=== PATIENT | male | born 1940 | race Caucasian/White ===

== ENCOUNTER → 2017-08-08 | Outpatient (CLI) | payer MEDICARE, BC ==
[~2017-08-08] MED LIST: ASPIRIN E.C. 8181 MG PO; BETAPACE 80MG80 MG PO; COUMADIN 5MG5 MG/TAB PO; HCTZ 25MG TAB25 MG PO; HYDRODIURIL PO; IRON325 M2 PO; LIPITOR 40MG TA40 MG PO; MOBIC15 MG PO; PLAVIX 75MG TAB75 MG PO; PRILOSEC 20MG20 MG PO; SINGULAIR 110 MG/TAB PO
== END ==
LOC: COL.RAD 08:52
DX: C34.92 Malignant neoplasm of unspecified part of left bronchus or lung (principal)
CPT/HCPCS: Q9967

== ENCOUNTER → 2018-12-28 | Outpatient (CLI) | payer MEDICARE, BC | LOC: COL.RAD 10:18 | DX: C34.32 Malignant neoplasm of lower lobe, left bronchus or lung (principal); Z98.890 Other specified postprocedural states | CPT/HCPCS: Q9967 ==

== ENCOUNTER 2020-07-14 09:40 | Day surgery (SDC) | payer MEDICARE, BC ==
[2020-07-14] VITALS (13 sets, daily range): BP systolic 92–131; BP diastolic 67–94; PULSE 60–130; TEMP 97.8
[~2020-07-14] VITALS: Ht 188.1 cm; Wt 97.8 kg
[2020-07-14 09:23] LABS: BASO % 0.4 % (0.0-2.0); EOS # 0.1 (0.0-0.7); EOS % 1.3 % (0-4.0); GRAN # 5.4 (1.4-6.5); GRAN % 75.5 % (42.2-75.2); HEMATOCRIT 39.9 % (42.0-52.0); HEMOGLOBIN 12.8 g/dl (13.5-18.0); LYMPH % 14.1 % (20.0-51.0); MEAN CELL VOLUME 99 fl (80.0-100.0); MEAN CORPUSCULAR HEMOGLOBIN 32 pg (27.0-31.0); MEAN CORPUSCULAR HGB CONC 32 g/dl (33.0-37.0); MEAN PLATELET VOLUME 10.9 fl (7.4-10.4); MONO # 0.6 (0.1-0.6); MONO % 8.4 % (1.7-9.3); PLATELET COUNT 146 K/mm3 (130-400); RED BLOOD COUNT 4.03 M/mm3 (4.20-5.60); REDCELL DISTRIBUTION WIDTH-CV 13.3 % (11.5-14.5)
[2020-07-14 09:33] LABS: CALCIUM 8.5 mg/dL (8.4-10.2); CREATININE, serum 1.33 (0.66-1.25); MAGNESIUM 1.3 mg/dL (1.6-2.3); POTASSIUM 4.6 mmol/L (3.4-5.0)
[~2020-07-14 09:40] MED LIST changes: +ACEBUTOLOL HYD200 MG PO; +ELIQUIS 5MG PO; -IRON325 M2 PO; +NATURAL IRON65 MG PO; +NORVASC 5MG5 MG/TAB PO
[2020-07-14 09:55] LABS: INR 1.5 (0.8-3.0); PROTHROMBIN TIME 16.7 SECONDS (9.7-12.8)
[2020-07-14 09:58] LABS: PARTIAL THROMBOPLASTIN TIME 32.6 SECONDS (26.0-37.0)
[2020-07-14 10:01] LABS: TSH w REFLEX 3.22 uIU/mL (0.465-4.680)
--- NOTE | 2020-07-14 10:30 | NUR ---
Dr. Hamilotn is at bedside to discuss poc with pt. Cardioversion was successful, pt now resting comfortably in sinus rhythm, rate 60. resp eupnic 98% on room air. repeat EKG has been obtained. Report was received from Lily KHAN.
--- NOTE | 2020-07-14 10:40 | NUR ---
Dr. Hamilton back at . Per Dr. Hamilton will plan on sending pt home after infusion of IV magnesium and po amiodarone.
[2020-07-14] MEDS ORDERED: PACERONE200 MG PO (10:51)
[2020-07-14] MEDS ORDERED: LASIX 20MG TABL20 MG PO (10:52)
[2020-07-14] MEDS ORDERED: K-DUR 10 MEQ T10 MEQ PO (10:53)
[2020-07-14] MEDS ORDERED: MAG-OX 400400 MG/TAB PO (10:53)
[2020-07-14] MEDS ORDERED: APRESOLINE50 MG PO (10:55)
--- NOTE | 2020-07-14 16:30 | NUR ---
Pt did well today, pt was converted to NSR, I assumed pt care at 1020. Pt felt much better after cardioversion. 4gram mag sulfate infusion administered as ordered, and PO amiodarone was administered after at least 1 gram of mag had infused. pt has been able to ambulate to br with no problem, he states he is feeling much less sob than he did this am with this amount of exertion. Pt did eat lunch during his stay. Pt and I reviewed his dc/fu/rx instructions as pt did have multiple mew medications from Dr. Hamilton. Pt verbalized understanding of these instructions. A written copy of instructions was provided. iv was dc'd with cath intact dressing applied. pt to exit via wheelchair.
== END 2020-07-14 17:48 | disposition home or self-care (01) ==
LOC: COL.CAR 09:40
PROVIDERS: Internal Medicine Adult Congenital Heart Disease
DX: I48.0 Paroxysmal atrial fibrillation (principal); I25.10 Atherosclerotic heart disease of native coronary artery without angina pectoris; I10 Essential (primary) hypertension; E78.5 Hyperlipidemia, unspecified; Z79.01 Long term (current) use of anticoagulants; Z87.891 Personal history of nicotine dependence; M16.0 Bilateral primary osteoarthritis of hip; Z96.653 Presence of artificial knee joint, bilateral; Z79.82 Long term (current) use of aspirin; Z88.8 Allergy status to other drugs, medicaments and biological substances; J44.9 Chronic obstructive pulmonary disease, unspecified; K21.9 Gastro-esophageal reflux disease without esophagitis; F41.9 Anxiety disorder, unspecified
CPT/HCPCS: J2704; J3475; J7120

== ENCOUNTER 2021-06-19 07:25 | Outpatient (CLI) | payer MEDICARE, BC ==
[~2021-06-19] VITALS: Ht 188.3 cm; Wt 94.5 kg
[~2021-06-19 07:25] MED LIST changes: +APRESOLINE50 MG PO; +K-DUR 10 MEQ T10 MEQ PO; +LASIX 20MG TABL20 MG PO; +MAG-OX 400400 MG/TAB PO; +PACERONE200 MG PO
[2021-06-19 07:53] LABS: HEMATOCRIT 42.7 % (42.0-52.0); HEMOGLOBIN 14.1 g/dl (13.5-18.0); MEAN CELL VOLUME 99 fl (80.0-100.0); MEAN CORPUSCULAR HEMOGLOBIN 33 pg (27-31); MEAN CORPUSCULAR HGB CONC 33 g/dl (33.0-37.0); MEAN PLATELET VOLUME 9.9 fl (7.4-10.4); PLATELET COUNT 170 K/mm3 (130-400); RED BLOOD COUNT 4.31 M/mm3 (4.20-5.60); REDCELL DISTRIBUTION WIDTH-CV 12.7 % (11.5-14.5)
[2021-06-19] MEDS ORDERED: ZESTRIL 10MG10 MG PO (07:59)
[2021-06-19] MEDS ORDERED: TYLENOL 500MG500 MG PO (08:02)
[2021-06-19] MEDS ORDERED: LASIX 20MG TABL20 MG PO (08:03)
[2021-06-19] MEDS ORDERED: K-DUR 10 MEQ T10 MEQ PO (08:04)
[2021-06-19] MEDS ORDERED: KLONOPIN 0.5MG0.5 MG PO (08:04)
[2021-06-19] MEDS ORDERED: ACEBUTOLOL HYD200 MG PO (08:05)
[2021-06-19 08:14] LABS: ALBUMIN 3.8 gm/dL (3.4-4.8); BILIRUBIN,TOTAL 0.6 mg/dL (0.2-1.2); CALCIUM 8.7 mg/dL (8.4-10.2); CHOLESTEROL RISK RATIO 2.7; CREATININE, serum 1.3 mg/dL (0.72-1.25); MAGNESIUM 1.6 mg/dL (1.6-2.6); POTASSIUM 4.5 mmol/L (3.5-4.5); TOTAL PROTEIN 6.5 gm/dL (6.2-8.1)
[2021-06-19 08:50] VITALS: BP 126/87; PULSE 102; TEMP 98.1
[2021-06-19 09:50] VITALS: BP 112/77; PULSE 48
[2021-06-19 10:00] VITALS: BP 138/75; PULSE 54
[2021-06-19] MEDS ORDERED: PACERONE200 MG PO (10:07)
[2021-06-19 10:15] VITALS: BP 135/68; PULSE 52
[2021-06-19 10:30] VITALS: BP 129/72; PULSE 54
[2021-06-19 10:45] VITALS: BP 132/76; PULSE 55
--- NOTE | 2021-06-19 10:51 | NUR ---
Discharge instructions given to pt.pt verbalizes understanding.INT removed,catheter tip intact.
--- NOTE | 2021-06-19 11:00 | NUR ---
Pt escorted out via wheelchair by this nurse.
== END 2021-06-19 11:54 ==
LOC: COL.RAD 07:25
PROVIDERS: Internal Medicine Adult Congenital Heart Disease
DX: I49.9 Cardiac arrhythmia, unspecified (principal); R00.1 Bradycardia, unspecified; Z98.890 Other specified postprocedural states
CPT/HCPCS: J2704